=== PATIENT | male | born 2000 | race African-American/Black ===

== ENCOUNTER 2019-11-10 18:51 | Emergency (ER) | payer SELFPAY ==
[~2019-11-10] VITALS: Ht 170.2 cm; Wt 62.0 kg
[2019-11-10 20:36] VITALS: BP 110/80
== END 2019-11-10 20:36 | disposition home or self-care (01) ==
LOC: ER 18:51
DX: M79.675 Pain in left toe(s) (principal); Z87.09 Personal history of other diseases of the respiratory system
CPT/HCPCS: 73660; 99283